=== PATIENT | male | born 1950 | race Caucasian/White ===

== ENCOUNTER 2018-05-01 06:26 | Day surgery (SDC) | payer OTHER, SELFPAY ==
[2018-05-01 06:44] VITALS: BP 106/63; PULSE 90; RESP 18; TEMP 36.2; O2SAT 97
[2018-05-01] MEDS: Lactated Ringers 1,000 ML 80 ML IV (07:01)
--- NOTE | 2018-05-01 08:17 | COLE_ITS ---
Date of service: 05/01/18 Time of Service: 08:16 Colonoscopy Report Date of procedure: 05/01/18 Pre-op diagnosis general: screening Post-op diagnosis procedure note: same Procedure: screening colonoscopy Surgeon: Иван Mcknight III Anesthesia proc note operative: MAC Pathology: none sent Complications: None Disposition: PACU Prep: GoLYTELY Procedure Description: After informed consent was obtained the patient was taken to the procedure room and placed in a left decubitous position. Monitors were applied and a time out was done. The patients name, date of , procedure, allergies to medications and metal in their body was reviewed. The patient was then sedated. Once sedated and comfortable a rectal exam was done. External exam was normal. Internal exam revealed a normal sphincter tone and no palpable mas ses. The prostate normal. The scope was then introduced and retrofelexed. No internal hemorrhoids were identified. The scope was then advanced to the cecum without difficulty. The TI and appendiceal orifice were identified. The prep was good. The scope was then slowly retracted over 6 minutes back into the rectum. No Polyps were removed. The scope was removed and the patient was woken up and taken back to Same day surgery in stable condition. The patient tolerated the procedure well and there were no immediate complications. Follow up: The patient should follow up in 10 years unless they develop changes in bowel habits or other new gastrointestinal complaints.
--- NOTE | 2018-05-01 08:20 | W.PM.DSUDISC ---
Discharge Plan Disposition Patient Disposition: HOME Condition: Stable Discharge Details Reason For Visit: screening colonoscopy Attending Provider: Иван Mcknight III Primary Care Provider: Kelle Jarquin Home Meds and New Rx's Prescriptions: Continued simvastatin 20 MG tablet 40 mg PO HS RF: 0 niacin 500 MG tablet 500 mg PO BID RF: 0 ranitidine HCl 150 mg Capsule 150 mg PO BID RF: 0 atorvastatin 40 mg Tablet 40 mg PO QPM RF: 0 clopidogrel [Plavix] 75 MG tablet 75 mg PO DAILY RF: 0 losartan 50 MG tablet 50 mg PO DAILY RF: 0 aspirin [Aspir-81] 81 MG tablet,delayed release (DR/EC) 81 mg PO DAILY RF: 0 Discharge Instructions Activity:: Activity as Tolerated Diet:: As Tolerated Discharge Orders Discharge Orders: Discharge Order (Routine); Ordered 05/01/18 Ordered By: Иван Mcknight III DS: Diagnosis Discharge Diagnosis (1) Screen for colon cancer: Status: Acute
[2018-05-01 08:39] VITALS: BP 109/66; PULSE 68; RESP 16; TEMP 36.1; O2SAT 94
== END 2018-05-01 09:28 | disposition home or self-care (01) ==
PROVIDERS: PCP Nurse Practitioner Primary Care; Visit Provider Surgery
PROC: 0DJD8ZZ Inspection of Lower Intestinal Tract, Via Natural or Artificial Opening Endoscopic (ICD-10-PCS; CPT 45378; principal; 2018-05-01 07:30)
DX: Z12.11 Encounter for screening for malignant neoplasm of colon (principal); J44.9 Chronic obstructive pulmonary disease, unspecified; K21.9 Gastro-esophageal reflux disease without esophagitis; I10 Essential (primary) hypertension; Z80.0 Family history of malignant neoplasm of digestive organs
CPT/HCPCS: 45378

== ENCOUNTER 2018-09-03 16:51 | Emergency (ER) | payer MEDICARE, SELFPAY ==
[2018-09-03 16:54] VITALS: BP 134/67; PULSE 111; RESP 20; TEMP 37.4; O2SAT 94
[2018-09-03 17:20] LABS: Bilirubin Negative (Negative); Blood Negative (Negative); Clarity Clear; Glucose Negative (Negative); Ketones Negative (Negative); Leukocyte Esterase Moderate (Negative); Nitrite Positive (Negative); Specific Gravity 1.015 (1.005-1.025); Urobilinogen 0.2 EU/dL (Up TO 0.2)
[2018-09-03 17:28] LABS: Lactate 1.5 mmol/L (0.6-1.4)
[2018-09-03] MEDS: Normal Saline Flush 10 ML SYR IVP (17:30)
[2018-09-03] MEDS: Normal Saline 1,000 ML 500 ML IV (17:30)
[2018-09-03 17:32] LABS: Abs Immature Grans 0.05 k/cumm (0.0-0.09); Basophils % 0.3; Eosinophils % 0.1; HCT 42.1 % (40.0-50.0); HGB 14.2 g/dL (13.5-17.5); Immature Grans % 0.3; Mean Corp. HGB Concentration 33.7 g/dL (32.0-36.0); Mean Corpuscular Hemoglobin 32.2 pg (27.0-33.0); Mean Corpuscular Volume 95.5 fL (80-95); Mean Platelet Volume 8.6 fL (8.0-11.0); Monocytes % 10.8; Neutrophils % 80.1; Platelet Count 211 x1000/uL (130-400); RBC 4.41 m/cumm (4.50-6.00); White Blood Cell Count 19.79 k/cumm (4.4-10.8)
[2018-09-03 17:33] LABS: Absolute Basophil Count 0.06 k/cumm (0.0-0.2); Absolute Eosinophil Count 0.02 k/cumm (0.0-0.7); Absolute Lymphocyte Count 1.66 k/cumm (1.2-3.4); Absolute Monocyte Count 2.14 k/cumm (0.11-0.7); Absolute Neutrophil Count 15.85 k/cumm (1.2-6.7)
[2018-09-03 17:37] LABS: Bacteria Few HPF (Negative); C & S Indicated? Yes; Casts Negative LPF (Negative); Crystals Negative HPF (Negative); Epithelial Cells Negative HPF (Negative); Mucus Moderate (Negative); WBC 20-50 HPF (0-5)
[2018-09-03 17:45] LABS: ALT 22 U/L (12-78); AST 15 U/L (15-37); Albumin 3.7 g/dL (3.4-5.0); Alkaline Phosphatase 83 U/L (46-116); Anion Gap 14.7 mmol/L (3-11); BUN 23 mg/dL (7-18); Bilirubin, Total 1.3 mg/dL (0.2-1.0); CO2 22.3 mmol/L (21.0-32.0); CREATININE 1.84 mg/dL (0.70-1.30); Calcium 9.4 mg/dL (8.5-10.1); Chloride 95 mmol/L (98-107); Estimated GFR 36.55 (mL/min/1.73m2); Glucose 107 mg/dL (70-100); Sodium 132 mmol/L (136-145); Total Protein 8.1 g/dL (6.4-8.2)
[2018-09-03 17:51] LABS: Diff Comment Diff Reviewed
[2018-09-03 17:52] LABS: Lymphocytes % 8.4; RBC Morphology Normal
[2018-09-03] MEDS: CIPROFLOXACIN 400 MG/200 ML BAG 200 MG IVPB (18:22)
--- NOTE | 2018-09-03 18:45 | DI.CT_ITS ---
SYMPTOM/DIAGNOSIS: PROSTATITIS, ? ABSCESS ABDOMEN AND PELVIC CT: The study was carried out without contrast enhancement. The liver is intact. There is cholelithiasis without evidence of biliary obstruction. The spleen and adrenals are intact. There is no evidence of nephrolithiasis. Mild perinephric stranding is a nonspecific finding. The stomach and bowel are unremarkable There is no evidence of an acute appendix. Mild circumferential thickening of the bladder wall could be on the basis of incomplete distension. There is mild surrounding fat haziness. The prostate is enlarged. There is apparent mild presacral edema as well as mild haziness in the pelvic fat. There is no evidence of free air or free fluid in the intraperitoneal space. Scattered bony degenerative changes are identified. No acute abnormality is seen. The soft tissues are unremarkable. There is atherosclerotic changes in the aorta and the transverse diameter measures 29 mm. in the lower abdominal aorta. There is no evidence of lymphadenopathy. SUMMARY: Mild circumferential bladder wall thickening with associated mild surrounding fat haziness which could represent cystitis. The prostate is enlarged. The kidneys are unremarkable. There is some mild pre sacral edema as well as mild haziness in the fat in the pelvis. There is cholelithiasis. Dilatation of the abdominal aorta is demonstrated with a maximal diameter of 29 mm. Please see the above discussion.
--- NOTE | 2018-09-03 19:12 | DI.VRAD_ITS ---
EXAM: CT Abdomen and Pelvis Without Contrast EXAM DATE/TIME: 09/03/2018 6:29 PM CLINICAL HISTORY: 68 years old, male; Abdominal pain; Generalized; Patient HX: Prostatitis, patient CO bilateral flank pain. TECHNIQUE: Imaging protocol: Axial computed tomography images of the abdomen and pelvis without contrast. Coronal and sagittal reformatted images were created and reviewed. Radiation optimization: All CT scans at this facility use at least one of these dose optimization techniques: automated exposure control; mA and/or kV adjustment per patient size (includes targeted exams where dose is matched to clinical indication); or iterative reconstruction. COMPARISON: No relevant prior studies available. FINDINGS: ABDOMEN: Liver: No mass. Gallbladder and bile ducts: Cholelithiasis. Pancreas: No ductal dilation. Spleen: No splenomegaly. Adrenals: No mass. Kidneys and ureters: No nephrolithiasis or hydronephrosis. Mild perinephric stranding is nonspecific. Stomach and bowel: No obstruction. No mucosal thickening. Appendix: No evidence of appendicitis. PELVIS: Bladder: Mild circumferential bladder wall thickening, with associated mild surrounding fat haziness. Reproductive: Enlarged prostate. Subperitoneal space: Mild presacral edema as well as mild haziness to the fat in the pelvis. ABDOMEN and PELVIS: Intraperitoneal space: No free air. No significant fluid collection. Bones/joints: Bony structures show scattered degenerative disease of the visualized spine.The highest neh-[id number] vertebral body is designated as L1. There is a transitional vertebrae at the lumbosacral junction, with sacralized L5. Soft tissues: Unremarkable. Vasculature: Atherosclerotic disease. Abdominal aorta measures 29 mm in diameter. Lymph nodes: No enlarged lymph nodes. IMPRESSION: 1. Mild circumferential bladder wall thickening, with associated mild surrounding fat haziness. Correlate for cystitis. 2. Enlarged prostate. 3. No nephrolithiasis or hydronephrosis. 4. Mild presacral edema as well as mild haziness to the fat in the pelvis. 5. Cholelithiasis. 6. Atherosclerotic disease. Abdominal aorta measures 29 mm in diameter. Dictated and Authenticated by: Jarrett Albarran MD. Ordering:BEATRIZ Urbano MD
[2018-09-03 19:41] VITALS: BP 143/72; PULSE 95; RESP 16; TEMP 37.7; O2SAT 94
--- NOTE | 2018-09-03 20:07 | ED.GENADUL_ITS ---
Discharge Plan Disposition Patient Disposition: HOME Condition: Poor Discharge Details Chief Complaint: Urinary Clinical Impression: UTI (urinary tract infection), Acute prostatitis, Acute pyelonephritis, TONY (acute kidney injury), Dehydration Primary Care Provider: Kelle Jarquin ED Provider: Yolie Sutton Home Meds and New Rx's Prescriptions: Continued niacin 500 MG tablet 500 mg PO BID RF: 0 ranitidine HCl 150 mg Capsule 150 mg PO BID RF: 0 atorvastatin 40 mg Tablet 40 mg PO QPM RF: 0 clopidogrel [Plavix] 75 MG tablet 75 mg PO DAILY RF: 0 losartan 50 MG tablet 50 mg PO DAILY RF: 0 aspirin [Aspir-81] 81 MG tablet,delayed release (DR/EC) 81 mg PO DAILY RF: 0 No Action tamsulosin 0.4 mg Capsule 0.4 mg PO HS Qty: 30 RF: 0 levofloxacin [Levaquin] 500 mg tablet 500 mg PO DAILY Qty: 14 RF: 0 Discharge Instructions Instructions: Ciprofloxacin (By mouth), Prostatitis (ED), Urinary Tract Infection in Men (ED) Additional Instructions: You have infection of your urinary tract with infection in bladder, kidneys and prostate. You are declining admission for this. You may return at any time for further treatment. Please encourage hydration. Take antibiotics as prescribed. Even if symptoms improve, please take the entire course. Side effects as discussed. Please follow up with your primary care as soon as possible, I would like for you to be seen in the next 48 hours. I have called and left a message so they are aware of what is going on. Please call first thing the in the morning to schedule appointment. If you develop fevers, are unable to stay hydrated, have further difficulty with urination or other new/worsening symptoms please seek care urgently once again. Referrals: Kelle Jarquin [Primary Care Provider] - Discharge Data Discharge Date/Time-TO BE ENTERED AT DEPARTURE: 09/03/18 20:40 Medical Decision Making Patient is a 68 year old male presenting today with c/c of dysurea that began about one week ago. States that he has pain with onset of urination, feels that he needs to strain. Has burning in the distal aspect of his penis. Endorses subjective fevers. No nausea/vomiting/diarrhea. Reports that he has started having flank pain over the past 2 days. No hematuria, no blood in stool. Reports diminished appetite. On exam, patient does appear ill. He is tachycardic at 111. Slightly hypoxic at 94%. He is not working to breathe, no dyspnea, speaking in full sentences. He is currently afebrile. He has a right-sided CVA tenderness. Abdomen is soft and nontender. Lungs are clear on exam.. Rectal exam is concerning for an enlarged, firm prostate. Palpation of the prostate causes discomfort for the patient, concern for prostatitis. No abnormality noted on exam genitalia. The patient appearing acutely ill, being tachycardic and having such an enlarged prostate, I am concerned for possible abscess formation. Exam is also concerning for pyelonephritis. Plan to obtain CT of the abdomen and pelvis pending laboratory results peer Leukocytosis 19.7, sodium 132, gap of 14.7, creatinine 1.8 with a GFR of 36, lactate slightly elevated at 1.5. Urine concerning for infection with positive nitrites, leukocyte. Culture pending. With the patient's creatinine, will hold off on contrast ABDOMEN: Liver: No mass. Gallbladder and bile ducts: Cholelithiasis. Pancreas: No ductal dilation. Spleen: No splenomegaly. Adrenals: No mass. Kidneys and ureters: No nephrolithiasis or hydronephrosis. Mild perinephric stranding is nonspecific. Stomach and bowel: No obstruction. No mucosal thickening. Appendix: No evidence of appendicitis. PELVIS: Bladder: Mild circumferential bladder wall thickening, with associated mild surrounding fat haziness. Reproductive: Enlarged prostate. Subperitoneal space: Mild presacral edema as well as mild haziness to the fat in the pelvis. ABDOMEN and PELVIS: Intraperitoneal space: No free air. No significant fluid collection. Bones/joints: Bony structures show scattered degenerative disease of the visualized spine.The highest wzn-rtb-fzibret vertebral body is designated as L1. There is a transitional vertebrae at the lumbosacral junction, with sacralized L5. Soft tissues: Unremarkable. Vasculature: Atherosclerotic disease. Abdominal aorta measures 29 mm in diameter. Lymph nodes: No enlarged lymph nodes. IMPRESSION: 1. Mild circumferential bladder wall thickening, with associated mild surrounding fat haziness. Correlate for cystitis. 2. Enlarged prostate. 3. No nephrolithiasis or hydronephrosis. 4. Mild presacral edema as well as mild haziness to the fat in the pelvis. 5. Cholelithiasis. 6. Atherosclerotic disease. Abdominal aorta measures 29 mm in diameter. Discussed these findings with the patient. He has been receiving IV antibiotics and is received 2 L of fluid. I am concerned with the findings of his labs and patient's appearance was developing urosepsis. Advised hospitalization which the patient is adamantly declining. He reports that he is at home to take care of his partner. I do feel that he is reliable to take oral medication. He is appropriate and of sound mind to take this decision. We did discuss risks associated with him departing against medical advice. He is aware that he may return at any point for continued care. Will be placed on Levofloxacin, discussed possible side effects/risks of this medication. Encouraged hyration, he is orally hydrating while here. Contacted PCP office, no one net applications developer but left message requesting he be seen in the next 48 hours. Patient will call tomorrow morning. All of his questions and concerns were addressed, patient left AMA. HPI General Mode of arrival: ambulatory . Date/Time Provider Initiated Documentation: 09/03/18 16:53 . Limitations to Documentation: no limitations . Information obtained by: patient, family (accompanied by neighbor) and RN notes reviewed . History of Present Illness 68 year old M presents to the emergency department with the chief complaint of dysurea, flank pain, fever, described as mild, Quality is described as burning (end of penis with urination), and is localized to the back (chronic juanjose pain, new flank pain) and abdomen. Patient reports no radiation. Patient started experiencing this week(s) (1) and it has been constant. No relieving factors improve symptom(s), No exacerbating factors reported . Patient notes fever/chills, loss of appetite, malaise and shortness of breath (chronic, hx of COPD); denies chest pain, cough, diaphoresis, headaches, nausea/vomiting, rash, seizure, syncope and weakness. Patient did receive the following treatments prior to arrival, none Related Data Home Medications Medication Instructions Recorded Confirmed niacin 500 mg PO BID 11/12/12 09/04/18 aspirin [Aspir-81] 81 mg PO DAILY 02/28/16 09/04/18 clopidogrel [Plavix] 75 mg PO DAILY 02/28/16 09/04/18 losartan 50 mg PO DAILY 02/28/16 09/04/18 ranitidine HCl 150 mg PO BID 04/28/18 09/04/18 atorvastatin 40 mg PO QPM 05/01/18 09/04/18 levofloxacin [Levaquin] 500 mg PO DAILY #14 tab 09/05/18 tamsulosin 0.4 mg PO HS #30 cap 09/05/18 Previous Rx's Medication Instructions Recorded levofloxacin [Levaquin] 500 mg PO DAILY #14 tab 09/05/18 tamsulosin 0.4 mg PO HS #30 cap 09/05/18 Allergies Allergy/AdvReac Type Severity Reaction Status Date / Time Penicillins Allergy Unknown pt unsure Verified 09/04/18 17:42 Review of Systems Constitutional Reports as per HPI, Denies chills, Denies fever(s) and Denies poor appetite Cardiovascular Denies chest pain Respiratory Denies cough Gastrointestinal Denies abdominal pain, Denies change in bowel habits, Denies nausea and Denies vomiting Genitourinary Reports as per HPI Musculoskeletal Reports as per HPI and Denies back pain Integumentary/Breasts Reports as per HPI and Denies rash PFS Medical History Generalized atherosclerosis (Acute) Personal history of colonic polyps (Chronic) Family history of colon cancer (Acute) History of left common carotid artery stent placement (Chronic) HTN (hypertension) (Chronic) COPD (chronic obstructive pulmonary disease) (Chronic) Hyperlipidemia (Chronic) Melena (Acute) Normal colonoscopy (Resolved 05/01/18) Chronic low back pain Sciatica Tubular adenoma Surgical History Colonoscopy - IV Sedation Social History Smoking/Tobacco Use Status: Former Tobacco Use Alcohol Intake: never Drug use: Never Substance use type: does not use Do you feel safe at home: Yes Do you feel safe in your relationship?: Yes Exam Const General: cooperative, healthy appearing, comfortable, no acute distress, well developed and well groomed Nutritional Appearance: average body habitus and well nourished Orientation: alert and awake Resp Effort & Inspection: normal respiratory effort and no respiratory distress Auscultation: clear to auscultation bilaterally, no rales, no rhonchi and no wheezes Cardio Rate: regular rate Rhythm: regular rhythm Heart Sounds: S1 normal and S2 normal GI Inspection: normal to inspection Palpation: soft, no hepatosplenomegaly, not firm, no guarding, not rigid and nontender Back/Spine/Pelvis Back: no CVA tenderness Skin General skin exam: no rashes or lesions noted Trauma: no lacerations or abrasions Neuro General: alert and awake Cognition: normal cognition Speech: speech normal Gait: normal gait Psych Appearance: grossly normal and well kempt Mental Status: mental status grossly normal Speech and Movement: speech and movement normal
[2018-09-03] MEDS: Ciprofloxacin 500 MG TAB PO (20:34)
== END 2018-09-03 20:40 | disposition home or self-care (01) ==
PROVIDERS: Emergency Provider Physician Assistant; PCP Nurse Practitioner Primary Care
DX: N39.0 Urinary tract infection, site not specified (principal); B95.1 Streptococcus, group B, as the cause of diseases classified elsewhere; N41.0 Acute prostatitis; N10 Acute pyelonephritis; N17.9 Acute kidney failure, unspecified; E86.0 Dehydration
CPT/HCPCS: 36415; 80053; 87040; 87077; 96361; 96365; 99284; 74176; 81003; 81015; 83605; 85025; 87086; J0744; J3490

== ENCOUNTER 2018-09-04 17:33 | Observation (INO) | payer MEDICARE, SELFPAY ==
[2018-09-04 17:37] VITALS: BP 159/76; PULSE 90; RESP 14; TEMP 36.6; O2SAT 97
[2018-09-04 18:34] LABS: Abs Immature Grans 0.03 k/cumm (0.0-0.09); Absolute Eosinophil Count 0.18 k/cumm (0.0-0.7); Absolute Lymphocyte Count 1.42 k/cumm (1.2-3.4); Basophils % 0.2; Eosinophils % 1.4; HCT 34.7 % (40.0-50.0); Immature Grans % 0.2; Mean Corp. HGB Concentration 34.6 g/dL (32.0-36.0); Mean Corpuscular Hemoglobin 32.5 pg (27.0-33.0); Mean Platelet Volume 8.8 fL (8.0-11.0); Monocytes % 10.7; Neutrophils % 76.5; Platelet Count 215 x1000/uL (130-400); RBC 3.69 m/cumm (4.50-6.00); RBC Distribution Width 12.4 % (11.8-14.1); White Blood Cell Count 12.94 k/cumm (4.4-10.8)
[2018-09-04 18:35] LABS: Absolute Basophil Count 0.03 k/cumm (0.0-0.2); Absolute Monocyte Count 1.38 k/cumm (0.11-0.7)
--- NOTE | 2018-09-04 18:36 | ED.GENADUL_ITS ---
Discharge Plan Disposition Patient Disposition: [facility] INPATIENT Condition: Improving Discharge Details Chief Complaint: FlankPain Clinical Impression: Acute pyelonephritis Primary Care Provider: Kelle Jarquin ED Provider: Zack Ugalde Home Meds and New Rx's Prescriptions: No Action niacin 500 MG tablet 500 mg PO BID RF: 0 ranitidine HCl 150 mg Capsule 150 mg PO BID RF: 0 atorvastatin 40 mg Tablet 40 mg PO QPM RF: 0 clopidogrel [Plavix] 75 MG tablet 75 mg PO DAILY RF: 0 losartan 50 MG tablet 50 mg PO DAILY RF: 0 aspirin [Aspir-81] 81 MG tablet,delayed release (DR/EC) 81 mg PO DAILY RF: 0 ciprofloxacin HCl 500 mg tablet 500 mg PO BID Qty: 40 RF: 0 Medical Decision Making This is a pleasant 68-year-old male with a past medical history of coronary artery disease, high cholesterol, hypertension, who presents today for evaluation of worsening urinary symptoms. The patient was seen and assessed less than 36 hours ago, at that time he was noted to have an elevated white count, concerning CT findings for pyelonephritis and cystitis, and inpatient admission was notably recommended. He was started on a yany quinolone IV Cipro, and then given outpatient Cipro after he refused to stay overnight and left AGAINST MEDICAL ADVICE. He returns today with continuation and lack of improvement of his symptoms, in conjunction with recommendations of his family to return. We will perform a repeat laboratory work-up, his micro results demonstrate gram-positive organisms, certainly concerning for Enterococcus faecalis. We will start vancomycin and Levaquin secondary to his penicillin allergy. The patient is requesting to stay here overnight, rather than go to the [place], [facility], they confirm that his insurance will cover his stay here. 7:17 PM Patient's laboratory work-up has returned, white count is still elevated but improving, left shift is still present but improving, lactate is normal. Renal function is elevated but improving. Sodium is low at 127. Although the patient does demonstrate some laboratory improvement with the gram-positive cultures, the lack of improvement subjectively, the continued fever and flank pain, I do feel that he would benefit from a day of IV antibiotics, admission until culture results return completed for full differentiation on susceptibilities. [facility] will [facility] his [facility]. I discussed the case with Dr Alcantara, he agrees with the assessment and plan. I have extensively reviewed the treatment plan and discharge instructions with the patient. I have addressed all patient concerns at this time. The patient was made aware of what symptoms to monitor for that would warrant a return to the emergency department. Discussed the plan with the patient, they demonstrate verbal understanding and agreement with our assessment and plan at this time. HPI General Date/Time Provider Initiated Documentation: 09/04/18 17:35 . HPI Narrative: This is a pleasant 68-year-old male with with a past medical history of hypertension, COPD, high cholesterol, coronary artery disease with stent, who presented yesterday for evaluation of dysuria, fevers, and flank pain for the last week. He was worked up and demonstrated an elevated creatinine, notable white count of 19, slightly elevated lactate, and a CT scan concerning for notable cystitis and pyelonephritis. Clinically the patient demonstrated signs and symptoms consistent with pyelonephritis. Unfortunately he did not want to stay at all, he left AGAINST MEDICAL ADVICE after receiving IV yany quinolones, and a prescription for oral Cipro. Over the last 24 hours the patient has had no significant improvement of his symptoms. He still complains of bilateral flank pain, chills, and fever. He denies any vomiting, diarrhea, chest pain, numbness tingling or weakness. He did take one day of antibiotics. Outpatient. He states that his family and [facility] doctor recommended he come back immediately for admission and that is why he is here today. No other modifying factors. Related Data Home Medications Medication Instructions Recorded Confirmed niacin 500 mg PO BID 11/12/12 09/04/18 aspirin [Aspir-81] 81 mg PO DAILY 02/28/16 09/04/18 clopidogrel [Plavix] 75 mg PO DAILY 02/28/16 09/04/18 losartan 50 mg PO DAILY 02/28/16 09/04/18 ranitidine HCl 150 mg PO BID 04/28/18 09/04/18 atorvastatin 40 mg PO QPM 05/01/18 09/04/18 ciprofloxacin HCl 500 mg PO BID #40 tab 09/03/18 09/04/18 Previous Rx's Medication Instructions Recorded ciprofloxacin HCl 500 mg PO BID #40 tab 09/03/18 Allergies Allergy/AdvReac Type Severity Reaction Status Date / Time Penicillins Allergy Unknown pt unsure Verified 09/04/18 17:42 General Stated Complaint: FlankPain RASHMI: 3 Review of Systems Review of Systems All systems reviewed & are unremarkable except as noted in HPI and below [facility] Social History Smoking/Tobacco Use Status: Former Tobacco Use Alcohol Intake: never Drug use: Never Substance use type: does not use Do you feel safe at home: Yes Do you feel safe in your relationship?: Yes Exam Narrative Exam Narrative: 1.Const: Well-nourished, Well-developed, appearing stated age 2.Eyes: PERRL, no conjunctival injection, and symmetrical lids. 3.ENT: Atraumatic external nose and ears. Moist MM. Neck: Symmetric, trachea midline, No thyromegaly. 4.CVS: +S1/S2, No murmurs or gallops. Peripheral pulses 2+ and equal in all extremities. Brisk capillary refill in all extremities. 5.RESP: Unlabored respiratory effort. Clear to auscultation bilaterally. No wheezes rales or rhonchi 6.GI: Soft, Nontender/Nondistended, No hepatosplenomegaly. No guarding or rebound. Mild flank and CVA tenderness bilaterally, worse on the left. Normal external genitalia, no penile discharge, no indirect or direct inguinal hernia palpable when the patient stands up and/or bears down, no scrotal masses, no femoral groin pain for femoral bulge palpable, normal testes, non painful testicular exam, normal cremasteric reflex bilaterally 7.MSK: Normocephalic/Atraumatic, Extremities w/o deformity or ttp No cyanosis or clubbing, Normal movement of all extremities 8.Skin: Warm, Dry. No rashes or lesions. 9.Neuro: manager nuclear II-XII grossly intact. Sensation grossly intact, no focal neurologic deficits. 10.Psych: (AAO) x3. Appropriate mood and affect Course Vital Signs Temperature 36.6 C 09/04/18 17:37 Pulse 90 09/04/18 17:37 Respiratory Rate 14 09/04/18 17:37 Blood Pressure 159/76 H 09/04/18 17:37 Pulse Oximetry 97 09/04/18 17:37 Temperature 36.6 C 09/04/18 17:37 Temperature Source Temporal Artery Scan 09/04/18 17:37 Pulse 90 09/04/18 17:37 Respiratory Rate 14 09/04/18 17:37 Respiratory Effort Non-Labored 09/04/18 17:40 Blood Pressure 159/76 H 09/04/18 17:37 Blood Pressure Position Sitting 09/04/18 17:37 Pulse Oximetry 97 09/04/18 17:37 Oxygen Delivery Method Room Air 09/04/18 17:37 Oxygen Flow Rate 0 09/04/18 17:37 Pain Level 8 09/04/18 17:41 Lab/Test Results Lab/Test Results: 09/04/18 18:09 Blood Blood Culture - Pending 09/04/18 18:09 Blood Blood Culture - Pending
[2018-09-04 18:50] LABS: ALT 26 U/L (12-78); AST 24 U/L (15-37); Albumin 3.2 g/dL (3.4-5.0); Alkaline Phosphatase 74 U/L (46-116); Anion Gap 12.2 mmol/L (3-11); BUN 22 mg/dL (7-18); Bilirubin, Total 0.9 mg/dL (0.2-1.0); CO2 20.8 mmol/L (21.0-32.0); CREATININE 1.55 mg/dL (0.70-1.30); Calcium 8.6 mg/dL (8.5-10.1); Chloride 94 mmol/L (98-107); Estimated GFR 44.55 (mL/min/1.73m2); Glucose 106 mg/dL (70-100); Potassium 3.6 mmol/L (3.5-5.1); Sodium 127 mmol/L (136-145); Total Protein 6.9 g/dL (6.4-8.2)
[2018-09-04] MEDS: levoFLOXacin 750 MG/150 ML BAG 100 MG IVPB (19:04)
[2018-09-04 19:39] VITALS: BP 148/70; PULSE 73; RESP 18; O2SAT 97
[2018-09-04 19:56] VITALS: BP 148/70; PULSE 73; RESP 18; O2SAT 97
[2018-09-04] MEDS: Normal Saline 1,000 ML 1000 ML IV (19:59)
[2018-09-04 20:21] VITALS: BP 174/77; PULSE 83; RESP 18; TEMP 36.5; O2SAT 100
--- NOTE | 2018-09-04 20:21 | W.PM.HP.N ---
Date of service: 09/04/18 Time of Service: 20:21 Assessment and Plan (1) Pyelonephritis, acute: Current visit: Yes Status: Acute Continue broad-spectrum antibiotics including vancomycin for coverage of enterococcus as well as IV Levaquin. Will narrow the spectrum of his antibiotics once we get the results of his repeat blood cultures and urine cultures. Continue with IV fluid hydration and add Flomax to improve urinary outflow (2) Prostatitis: Current visit: Yes Status: Acute Continue broad-spectrum parenteral antibiotics including IV Levaquin and IV vancomycin pending the results of his repeat blood cultures and his urine cultures. We will begin the patient on Flomax to help with urinary flow and emptying of his bladder. Qualifiers: Prostatitis type: acute Qualified Code(s): N41.0 - Acute prostatitis (3) BPH (benign prostatic hyperplasia): Current visit: Yes Status: Chronic As above Qualifiers: Lower urinary tract symptom presence: symptoms present Lower urinary tract symptom detail: urinary hesitancy Qualified Code(s): N40.1 - Benign prostatic hyperplasia with lower urinary tract symptoms; R39.11 - Hesitancy of micturition (4) HTN (hypertension): Current visit: No Status: Chronic Continue his home medication of losartan. Qualifiers: Hypertension type: essential hypertension Qualified Code(s): I10 - Essential (primary) hypertension (5) Hyperlipidemia: Current visit: No Status: Chronic Continue his home medications of niacin and atorvastatin Qualifiers: Hyperlipidemia type: unspecified Qualified Code(s): E78.5 - Hyperlipidemia, unspecified (6) History of left common carotid artery stent placement: Current visit: No Status: Chronic Continue Plavix and aspirin History of Present Illness Chief Complaint: fever, flank pain Narrative: 68-year-old male with a history of hypertension, COPD, hyperlipidemia, sciatica, carotid atherosclerosis status post left common carotid endarterectomy and history of renal artery stenosis status post left renal artery stent. Patient presents with 4-day history of dysuria malaise decreased appetite myalgias and chills now with left flank pain. Patient was evaluated in the emergency department yesterday and underwent routine labs along with a noncontrast CT scan of his abdomen and pelvis. Laboratory studies were remarkable for white cell count of 19,000 with a elevated lactate of 1.5 and a urinalysis that was positive for leukocyte esterase and nitrites and bacteria in his chemistry showed elevated creatinine 1.8. CT scan of the abdomen and pelvis showed cholelithiasis but no cholecystitis. Kidneys ureter and bladder showed no nephrolithiasis and no hydronephrosis but mild perinephric stranding and mild circumferential bladder wall thickening with surrounding fatty stranding and an enlarged prostate and presacral edema along with pelvic fatty stranding. He also has a abdominal aortic atherosclerosis with a diameter of 29 mm. He was treated yesterday in the emergency room with IV fluids and antibiotics and discharged with ciprofloxacin. He had been advised to be admitted to the hospital however the patient declined as he felt the need to return home to take care of his elderly partner. Patient is a client of the [facility] in [facility] and his primary care provider Mee Jarquin advised him that he should have agreed to admission to the hospital and therefore she sent him back to the emergency department. Today in the emergency department he was found to be afebrile at 36.6 whereas yesterday he had a fever of 37.7. He is not tachycardic. He is mildly hypertensive. Today his white cell count is down to 12,900. His creatinine improved dropping from 1.84 down to 1.55. He is mildly hyponatremic at 127. His anion gap is improved from 14.7 down to 12.2. His blood lactate level which have been elevated 1.5 yesterday is down to 1.0 today. His blood cultures from yesterday show no growth but his urine culture showing gram-positive yany at 10-50,000 colonies. He also has a second organism of gram-positive yany that are mixed at less than 10,000 colonies. His prostate exam performed in the emergency department reveals an enlarged firm prostate that is somewhat tender. I did not repeat his prostate exam tonight. Patient is now admitted to the medical floor for parenteral antibiotics including vancomycin and Levaquin. Review of Systems Constitutional Reports body ache(s), Reports chills, Reports fatigue, Reports fever(s), Reports poor appetite and Reports weakness Eyes Reports system reviewed and no additional complaints, except as docu ENT Reports system reviewed and no additional complaints, except as docu Cardiovascular Reports system reviewed and no additional complaints, except as docu Respiratory Reports system reviewed and no additional complaints, except as docu Gastrointestinal Denies abdominal pain, Reports nausea and Denies vomiting Genitourinary Reports as per HPI, Denies hematuria, Reports dysuria, Reports flank pain, Reports urinary frequency, Reports urinary hesitancy and Reports urinary urgency Musculoskeletal Reports back pain and Reports numbness (Chronic numbness in both feet secondary to spinal stenosis) Neurologic Reports numbness (Chronic numbness in both feet secondary to spinal stenosis) and Reports weakness Psychiatric Reports system reviewed and no additional complaints, except as docu Endocrine Reports system reviewed and no additional complaints, except as docu and Reports fatigue Hematologic/Lymphatic Reports system reviewed and no additional complaints, except as docu Allergic/Immunologic Reports system reviewed and no additional complaints, except as docu PFSH Medical History Sciatica Chronic low back pain Tubular adenoma Generalized atherosclerosis (Chronic) Personal history of colonic polyps (Chronic) Family history of colon cancer (Chronic) HTN (hypertension) (Chronic) COPD (chronic obstructive pulmonary disease) (Chronic) Hyperlipidemia (Chronic) Melena (Resolved) Surgical History History of left common carotid artery stent placement (Chronic) Colonoscopy - IV Sedation (Resolved) Normal colonoscopy (Resolved 05/01/18) Family History Father Colon cancer Paternal Grandfather Rectal cancer Social History Smoking/Tobacco Use Status: Former Tobacco Use Alcohol Intake: never Drug use: Never Substance use type: does not use Do you feel safe at home: Yes Do you feel safe in your relationship?: Yes Meds Home Medications Medication Instructions Recorded Confirmed Type niacin 500 mg PO BID 11/12/12 09/04/18 History aspirin [Aspir-81] 81 mg PO DAILY 02/28/16 09/04/18 History clopidogrel [Plavix] 75 mg PO DAILY 02/28/16 09/04/18 History losartan 50 mg PO DAILY 02/28/16 09/04/18 History ranitidine HCl 150 mg PO BID 04/28/18 09/04/18 History atorvastatin 40 mg PO QPM 05/01/18 09/04/18 History ciprofloxacin HCl 500 mg PO BID #40 tab 09/03/18 09/04/18 Rx Allergies Allergy/AdvReac Type Severity Reaction Status Date / Time Penicillins Allergy Unknown pt unsure Verified 09/04/18 17:42 Exam Const General: cooperative, healthy appearing, no acute distress and well groomed Nutritional Appearance: average body habitus Orientation: alert, awake and oriented x3 Neck Neck: normal visual inspection, full ROM, no lymphadenopathy, trachea midline and no JVD Resp Effort & Inspection: normal respiratory effort and able to speak in complete sentences Auscultation: clear to auscultation bilaterally Cardio Jugular venous pressure: no JVD Palpation: normal PMI Rate: regular rate Rhythm: regular rhythm Heart Sounds: S1 normal, S2 normal, normal, physiologic split S2 and no murmurs Pulses: normal peripheral pulses GI Inspection: normal to inspection Palpation: soft and no hepatosplenomegaly Percussion: normal to percussion Auscultation: normal bowel sounds Rectal Exam: deferred General: bladder normal to palpation and No CVA tenderness Back/Spine/Pelvis Back: no CVA tenderness Cervical Spine: normal cervical lordosis Thoracic/Lumbar Spine: thoracic and lumbar spine normal to inspection Extrem General: normal to inspection, full ROM, normal capillary refill, no joint enlargement and no clubbing, cyanosis or edema Psych Appearance: grossly normal Mental Status: mental status grossly normal Speech and Movement: speech and movement normal Mood: congruent mood Affect: normal affect Attitude: cooperative Thought Process: normal Thought Content: normal Insight: insight good Judgment: judgment good Results Imaging Abdomen CT scan report/results: report reviewed (SUMMARY: Mild circumferential bladder wall thickening with associated mild surrounding fat haziness which could represent cystitis. The prostate is enlarged. The kidneys are unremarkable. There is some mild pre sacral edema as well as mild haziness in the fat in the pelvis. There is cholelithia) Labs : 09/04/18 18:23 09/04/18 18:23 Laboratory Results - last 24 hr 09/04/18 09/04/18 09/04/18 18:23 18:23 18:23 WBC 12.94 H D RBC 3.69 L Hgb 12.0 L D Hct 34.7 L MCV 94.0 MCH 32.5 MCHC 34.6 RDW 12.4 Plt Count 215 MPV 8.8 Immature Gran % 0.2 Neutrophils % 76.5 Lymphocytes % 11.0 Monocytes % 10.7 Eosinophils % 1.4 Basophils % 0.2 Absolute Neutrophils 9.90 H Absolute Lymphocytes 1.42 Absolute Monocytes 1.38 H Absolute Eosinophils 0.18 Absolute Basophils 0.03 Sodium 127 L Potassium 3.6 Chloride 94 L Carbon Dioxide 20.8 L Anion Gap 12.2 H BUN 22 H Creatinine 1.55 H Estimated GFR/1.73 m2 44.55 Glucose 106 H Lactate 1.0 Calcium 8.6 Total Bilirubin 0.9 AST 24 ALT 26 Alkaline Phosphatase 74 Total Protein 6.9 Albumin 3.2 L Last Vital Signs Temp 36.6 C 09/04/18 17:37 Pulse 73 09/04/18 19:56 Resp 18 09/04/18 19:56 BP 148/70 H 09/04/18 19:56 Pulse Ox 97 09/04/18 19:56
[2018-09-04] MEDS: Atorvastatin 40 MG TAB PO (21:58)
[2018-09-04] MEDS: Acetaminophen 325 MG TAB PO (21:59)
[2018-09-04] MEDS: Water,Injection,Sterile 10 ML VIAL (21:59)
[2018-09-05 07:09] LABS: Abs Immature Grans 0.04 k/cumm (0.0-0.09); Absolute Basophil Count 0.02 k/cumm (0.0-0.2); Absolute Eosinophil Count 0.22 k/cumm (0.0-0.7); Absolute Lymphocyte Count 1.35 k/cumm (1.2-3.4); Absolute Monocyte Count 1.26 k/cumm (0.11-0.7); Absolute Neutrophil Count 6.41 k/cumm (1.2-6.7); Basophils % 0.2; Eosinophils % 2.4; HCT 34.3 % (40.0-50.0); HGB 11.9 g/dL (13.5-17.5); Immature Grans % 0.4; Lymphocytes % 14.5; Mean Corp. HGB Concentration 34.7 g/dL (32.0-36.0); Mean Corpuscular Hemoglobin 32.8 pg (27.0-33.0); Mean Corpuscular Volume 94.5 fL (80-95); Mean Platelet Volume 9.3 fL (8.0-11.0); Monocytes % 13.5; Platelet Count 209 x1000/uL (130-400); RBC 3.63 m/cumm (4.50-6.00); RBC Distribution Width 12.3 % (11.8-14.1)
[2018-09-05 07:15] LABS: Anion Gap 8.8 mmol/L (3-11); BUN 18 mg/dL (7-18); CO2 22.2 mmol/L (21.0-32.0); CREATININE 1.26 mg/dL (0.70-1.30); Calcium 8.6 mg/dL (8.5-10.1); Chloride 101 mmol/L (98-107); Estimated GFR 56.58 (mL/min/1.73m2); Glucose 100 mg/dL (70-100); Potassium 3.9 mmol/L (3.5-5.1); Sodium 132 mmol/L (136-145)
[2018-09-05 07:50] VITALS: BP 143/74; PULSE 86; RESP 16; TEMP 36; O2SAT 98
[2018-09-05] MEDS: Clopidogrel 75 MG TAB PO (09:28)
[2018-09-05] MEDS: Niacin 500 MG TAB PO (09:28)
[2018-09-05] MEDS: Aspirin E.C. 81 MG TABEC PO (09:28)
[2018-09-05] MEDS: Losartan 50 MG TAB PO (09:28)
[2018-09-05] MEDS: Normal Saline Flush 10 ML SYR IVP (09:29)
[2018-09-05] MEDS: Fosfomycin Tromethamine 3 GM PACKET PO (10:40)
[2018-09-05] MEDS: Potassium Chloride 10 MEQ TABCR PO (10:40)
--- NOTE | 2018-09-05 14:31 | W.PM.DS.N ---
Date of service: 09/05/18 Time of Service: 14:32 DS: Diagnosis Discharge Diagnosis (1) Prostatitis: Status: Acute (2) BPH (benign prostatic hyperplasia): Status: Chronic (3) HTN (hypertension): Status: Chronic (4) Hyperlipidemia: Status: Chronic (5) History of left common carotid artery stent placement: Status: Chronic Discharge Plan Disposition Patient Disposition: HOME Condition: Improving Discharge Details Reason For Visit: PYELONEPHRITIS Admit Date/Time: 09/04/18 19:37 Admit Provider: Stephen Alcantara Attending Provider: Stephen Alcantara Primary Care Provider: Kelle Jarquin [facility] Course Hospital Course: Luis M Wise is a very pleasant 68 year old man with a past medical history of BPH, HTN, COPD, hyperlipidemia, carotid atherosclerosis with history of left common carotid endarterectomy and history of renal artery stenosis status post left renal artery stent who originally presented to the ED on 09/03/18 with reports of dysuria, general malaise, myalgias and chills, he was noted at that time to have leukoctosis to 19,000, with elevate lactate at 1.5 and a UA suspicious for infection with leukocyte esterase and nitrites and bacteria. He was also noted to have elevated creatinine at 1.8. CT scan of the abdomen and pelvis showed cholelithiasis but no cholecystitis. Kidneys ureter and bladder showed no nephrolithiasis and no hydronephrosis but mild perinephric stranding and mild circumferential bladder wall thickening with surrounding fatty stranding and an enlarged prostate and presacral edema along with pelvic fatty stranding. He also has a abdominal aortic atherosclerosis with a diameter of 29 mm. He was eager for discharge home and was discharged on Ciprofloxacin. He spoke with his PCP the following day who recommended that he return to the ED and stated that he should have agreed to admission to the hospital at that time. Given his PCP advice, he returned to the ED yesterday on 09/04/18, at which time he was afebrile, nontachycardic, his leukocytosis had improved to 12,900, creatinine improved to 1.55, he had mildly low sodium at 127, his lactate was down to 1. His blood cultures from the previous visit had yielded no growth and his urine culture was growing 2 gram-positive organisms. His prostate exam performed in the emergency department reveals an enlarged firm prostate that is somewhat tender. He was admitted to the Med/surg floor for IV antibiotics. By the following day, his sodium improved to 132, his creatinine normalized to 1.26, his leukocytosis resolved, his white blood cell count was down to 9.3, his hgb stable at 11.9. His blood cultures remain without growth, his urine culture showing gram positive yany, 2 colonies. Given the above rectal exam, there is concern for prostatitis. He was given one dose of fosfomycin to cover for possible enterococcus faecalis. He will be discharged home on a 2 week course of levaquin. He will need to follow up with his PCP with a referral to urology as needed. Given his enlarged prostate, he will also be discharged on flomax. He was assessed for urinary retention prior to his discharge home. He was bladder scanned for post void residual and not found to be retaining urine. He will resume his previous medications as usual. Home Meds and New Rx's Prescriptions: New tamsulosin 0.4 mg Capsule 0.4 mg PO HS Qty: 30 RF: 0 levofloxacin [Levaquin] 500 mg tablet 500 mg PO DAILY Qty: 14 RF: 0 Continued niacin 500 MG tablet 500 mg PO BID RF: 0 ranitidine HCl 150 mg Capsule 150 mg PO BID RF: 0 atorvastatin 40 mg Tablet 40 mg PO QPM RF: 0 clopidogrel [Plavix] 75 MG tablet 75 mg PO DAILY RF: 0 losartan 50 MG tablet 50 mg PO DAILY RF: 0 aspirin [Aspir-81] 81 MG tablet,delayed release (DR/EC) 81 mg PO DAILY RF: 0 Discontinued ciprofloxacin HCl 500 mg tablet 500 mg PO BID Qty: 40 RF: 0 Discharge Instructions Instructions: Prostatitis (DC) Additional Instructions: Drink plenty of fluids. Take antibiotics until they are gone. Follow up with your PCP as scheduled. Take care! Stand Alone Forms: Nursing Discharge Form Referrals: Kelle Jarquin [Primary Care Provider] - 09/18/18 10:00 am Activity:: Activity as Tolerated Equipment/Supplies:: No Equipment Needed Diet:: heart healthy eating Discharge Orders Discharge Orders: Discharge Order (Routine); Ordered 09/05/18 Ordered By: Nicole Augustin Exam Narrative Exam Narrative: General: well appearing 68 year old man, laying in bed with HOB elevated, in no acute distress. HEENT: Normocephalic, atraumatic, pupils equal round, extraocular movements intact, mucous membranes moist. Neck: supple, no JVD. Cardiovascular: regular heart rate, nontachycardic, no murmur appreciated. Respiratory: respirations even and unlabored, lung sounds clear bilaterally. GI: abdomen soft, nontender on palpation with normoactive bowel sounds, no CVA tenderness. Extremities: well perfused with no clubbing cyanosis or edema. DS: Data Vitals/I&O Vitals and I&O: Vital Signs Temperature 36 C L 09/05/18 07:50 Temperature Source Tympanic 09/05/18 07:50 Pulse 86 09/05/18 07:50 Pulse Rhythm Regular 09/04/18 20:21 Respiratory Rate 16 09/05/18 07:50 Respiratory Effort Non-Labored 09/04/18 20:21 Respiratory Depth Normal 09/04/18 20:21 Respiratory Pattern Normal 09/04/18 20:21 Blood Pressure 143/74 H 09/05/18 07:50 Blood Pressure Position Sitting 09/04/18 17:37 Pulse Oximetry 98 09/05/18 07:50 Oxygen Delivery Method Room Air 09/05/18 07:50 Oxygen Flow Rate 0 09/05/18 07:50 Pain Level 4 09/04/18 23:33 Comment 09/04/18 20:21 Intake & Output 09/04/18 09/05/18 09/05/18 23:59 11:59 23:59 Intake Total 1640 / 1640 1520 / 1880 360 / 1880 Output Total 700 / 700 1925 / 2125 200 / 2125 Balance 940 / 940 -405 / -245 160 / -245 Weight 80.286 kg 79.7 kg Intake: IV 1400 / 1400 10 / 10 Oral 240 / 240 1510 / 1870 360 / 1870 Output: Urine 700 / 700 1925 / 2125 200 / 2125 Other: Urine Color Pale Yellow Yellow Yellow Urine Appearance Clear Clear Clear Urine Odor Normal Normal Comment Rn notified Voiding Methods Toilet Urinal Urinal Completed studies during hospitalization [Text1]: 09/03/18: ABDOMEN AND PELVIC CT: The study was carried out without contrast enhancement. The liver is intact. There is cholelithiasis without evidence of biliary obstruction. The spleen and adrenals are intact. There is no evidence of nephrolithiasis. Mild perinephric stranding is a nonspecific finding. The stomach and bowel are unremarkable There is no evidence of an acute appendix. Mild circumferential thickening of the bladder wall could be on the basis of incomplete distension. There is mild surrounding fat haziness. The prostate is enlarged. There is apparent mild presacral edema as well as mild haziness in the pelvic fat. There is no evidence of free air or free fluid in the intraperitoneal space. Scattered bony degenerative changes are identified. No acute abnormality is seen. The soft tissues are unremarkable. There is atherosclerotic changes in the aorta and the transverse diameter measures 29 mm. in the lower abdominal aorta. There is no evidence of lymphadenopathy. SUMMARY: Mild circumferential bladder wall thickening with associated mild surrounding fat haziness which could represent cystitis. The prostate is enlarged. The kidneys are unremarkable. There is some mild pre sacral edema as well as mild haziness in the fat in the pelvis. There is cholelithiasis. Dilatation of the abdominal aorta is demonstrated with a maximal diameter of 29 mm. Please see the above discussion. Labs on day of discharge: Labs from last 24 hours 09/05/18 09/05/18 09/04/18 06:38 06:38 18:23 WBC 9.30 12.94 H D RBC 3.63 L 3.69 L Hgb 11.9 L 12.0 L D Hct 34.3 L 34.7 L MCV 94.5 94.0 MCH 32.8 32.5 MCHC 34.7 34.6 RDW 12.3 12.4 Plt Count 209 215 MPV 9.3 8.8 Immature Gran % 0.4 0.2 Neutrophils % 69.0 76.5 Lymphocytes % 14.5 11.0 Monocytes % 13.5 10.7 Eosinophils % 2.4 1.4 Basophils % 0.2 0.2 Absolute Neutrophils 6.41 9.90 H Absolute Lymphocytes 1.35 1.42 Absolute Monocytes 1.26 H 1.38 H Absolute Eosinophils 0.22 0.18 Absolute Basophils 0.02 0.03 Sodium 132 L Potassium 3.9 Chloride 101 Carbon Dioxide 22.2 Anion Gap 8.8 BUN 18 Creatinine 1.26 Estimated GFR/1.73 m2 56.58 Glucose 100 Lactate Calcium 8.6 Magnesium 2.0 Total Bilirubin AST ALT Alkaline Phosphatase Total Protein Albumin 09/04/18 09/04/18 18:23 18:23 WBC RBC Hgb Hct MCV MCH MCHC RDW Plt Count MPV Immature Gran % Neutrophils % Lymphocytes % Monocytes % Eosinophils % Basophils % Absolute Neutrophils Absolute Lymphocytes Absolute Monocytes Absolute Eosinophils Absolute Basophils Sodium 127 L Potassium 3.6 Chloride 94 L Carbon Dioxide 20.8 L Anion Gap 12.2 H BUN 22 H Creatinine 1.55 H Estimated GFR/1.73 m2 44.55 Glucose 106 H Lactate 1.0 Calcium 8.6 Magnesium Total Bilirubin 0.9 AST 24 ALT 26 Alkaline Phosphatase 74 Total Protein 6.9 Albumin 3.2 L 09/04/18 18:42 Blood Blood Culture - Pending 09/04/18 18:23 Blood Blood Culture - Pending Preliminary micro results at discharge 09/04/18 18:42 Blood Culture - Pending Blood 09/04/18 18:23 Blood Culture - Pending Blood [facility] Medical History Sciatica Chronic low back pain Tubular adenoma Generalized atherosclerosis (Chronic) Personal history of colonic polyps (Chronic) Family history of colon cancer (Chronic) HTN (hypertension) (Chronic) COPD (chronic obstructive pulmonary disease) (Chronic) Hyperlipidemia (Chronic) Melena (Resolved) Surgical History History of left common carotid artery stent placement (Chronic) Colonoscopy - IV Sedation (Resolved) Normal colonoscopy (Resolved 05/01/18) Family History Father Colon cancer Paternal Grandfather Rectal cancer Social History Smoking/Tobacco Use Status: Former Tobacco Use Alcohol Intake: never Drug use: Never Substance use type: does not use Do you feel safe at home: Yes Do you feel safe in your relationship?: Yes
[2018-09-05 15:25] VITALS: BP 153/76; PULSE 71; RESP 16; TEMP 36.8; O2SAT 98
--- NOTE | 2018-09-05 17:22 | PDOC.CMIN ---
- If Service Date Differs Date of service: 09/05/18 Time of Service: 17:22 Care Management Initial Assess REASON FOR HOSPITALIZATION:: Prostatitis PAST MEDICAL HISTORY/PAST SURGICAL HISTORY:: Medical History. Sciatica. Chronic low back pain. Tubular adenoma. Generalized atherosclerosis (Chronic). Personal history of colonic polyps (Chronic). Family history of colon cancer (Chronic). HTN (hypertension) (Chronic). COPD (chronic obstructive pulmonary disease) (Chronic). Hyperlipidemia (Chronic). Melena (Resolved). Surgical History. History of left common carotid artery stent placement (Chronic). Colonoscopy - IV Sedation (Resolved). Normal colonoscopy (Resolved 05/01/18) PREVIOUS FUNCTIONAL STATUS/SOCIAL/FAMILY SUPPORTS:: Luis M lives at home with his partner Braxton in [place], [place]. He worked in [place], [place] as [employer] for many years and moves to [place] about 20 years ago. He is indpenedent at home with ADLS and transportation. He was in the for two years and receives his care through [facility] [place] and his medications. His partner is ill with end stage lung disease. He reports he provides his care and has no services in the home. CURRENT FUNCTIONAL STATUS:: Luis M is alert and engaged he reviews reason for admission. He states that he usually goes to the [facility] for his care and has an appointment on the 29 of September. He states he does not have a urologist as an outpatient. ADVANCE DIRECTIVES:: On file at [facility] Has patient been provided with information about the portal?: Yes Did the patient sign up for the portal?: No INSURANCE COVERAGE / FINANCIAL ISSUES:: Medicare, [facility] CURRENT HOME/COMMUNITY SERVICES/EQUIPMENT:: None. He does have a friend who is also a nurse that lives next door who checks on him and his SO often. PRIMARY CARE PHYSICIAN:: Kelle Jarquin POTENTIAL DISCHARGE NEEDS:: [facility]13. CM will fax discharge med list to his primary at the [facility] for follow up care. PATIENT/FAMILY EDUCATION NEEDS:: Discharge education, limitations and follow up plan of care including ask me three and self management. ANTICIPATED BARRIERS TO DISCHARGE:: Local pharmacy pt [facility] He will be discharged home on oral antibioitcs and will need his presciptions faxed locally verified pharmacy [facility] in [place]. TRANSPORTATION:: Via private car self at time of discharge. PLAN:: Michel will be discharged home with oral antibiotics. He states he feels ready to go home and understands his plan of care. CM notified provider of local pharmacy need and she will electronically to [facility] in [place]. CM to continue to provide support discharge planning to pt and family.
--- NOTE | 2018-09-05 17:36 | INITIAL_ITS ---
- If Service Date Differs Date of service: 09/05/18 Time of Service: 17:22 Care Management Initial Assess REASON FOR HOSPITALIZATION:: Prostatitis PAST MEDICAL HISTORY/PAST SURGICAL HISTORY:: Medical History. Sciatica. Chronic low back pain. Tubular adenoma. Generalized atherosclerosis (Chronic). Personal history of colonic polyps (Chronic). Family history of colon cancer (Chronic). HTN (hypertension) (Chronic). COPD (chronic obstructive pulmonary disease) (Chronic). Hyperlipidemia (Chronic). Melena (Resolved). Surgical History. History of left common carotid artery stent placement (Chronic). Colonoscopy - IV Sedation (Resolved). Normal colonoscopy (Resolved 05/01/18) PREVIOUS FUNCTIONAL STATUS/SOCIAL/FAMILY SUPPORTS:: Luis M lives at home with his partner Braxton in [place], [place]. He worked in [place], [place] as [employer] for many years and moves to [place] about 20 years ago. He is indpenedent at home with ADLS and transportation. He was in the for two years and receives his care through the [facility] [place] and his medications. His partner is ill with end stage lung disease. He reports he provides his care and has no services in the home. CURRENT FUNCTIONAL STATUS:: Luis M is alert and engaged he reviews reason for admission. He states that he usually goes to the [facility] for his care and has an appointment on the 29 of September. He states he does not have a urologist as an o utpatient. ADVANCE DIRECTIVES:: On file at [facility] Has patient been provided with information about the portal?: Yes Did the patient sign up for the portal?: No INSURANCE COVERAGE / FINANCIAL ISSUES:: Medicare, [facility] CURRENT HOME/COMMUNITY SERVICES/EQUIPMENT:: None. He does have a friend who is also a nurse that lives next door who checks on him and his SO often. PRIMARY CARE PHYSICIAN:: Kelle Jarquin POTENTIAL DISCHARGE NEEDS:: [facility]13. CM will fax discharge med list to his primary at the [facility] for follow up care. PATIENT/FAMILY EDUCATION NEEDS:: Discharge education, limitations and follow up plan of care including ask me three and self management. ANTICIPATED BARRIERS TO DISCHARGE:: [facility]. He will be discharged home on oral antibioitcs and will need his presciptions faxed locally verified pharmacy [facility] in [place]. TRANSPORTATION:: Via private car self at time of discharge. PLAN:: Michel will be discharged home with oral antibiotics. He states he feels ready to go home and understands his plan of care. CM notified provider of local pharmacy need and she will electronically to [facility] in [place]. CM to continue to provide support discharge planning to pt and family.
== END 2018-09-05 15:45 | disposition home or self-care (01) ==
LOC: ER 20:05 → MS 20:11
PROVIDERS: Admitting Provider Internal Medicine; Emergency Provider Student in an Organized Health Care Education/Training Program; PCP Nurse Practitioner Primary Care; Visit Provider Internal Medicine
DX: N10 Acute pyelonephritis (principal); N41.0 Acute prostatitis; N40.1 Benign prostatic hyperplasia with lower urinary tract symptoms; R30.0 Dysuria; R39.11 Hesitancy of micturition; R53.81 Other malaise; R10.12 Left upper quadrant pain; E87.1 Hypo-osmolality and hyponatremia; E78.5 Hyperlipidemia, unspecified; I10 Essential (primary) hypertension; J44.9 Chronic obstructive pulmonary disease, unspecified; Z87.891 Personal history of nicotine dependence
CPT/HCPCS: 36415; 80048; 80053; 87040; 96360; 99220; 99239; 99285; 83605; 83735; 85025; 99217; 99284; G0378; J1956; J3490